=== PATIENT | male | born 1935 | race Caucasian/White ===

== ENCOUNTER → 2017-12-11 | Outpatient (CLI) | payer OTHER, BC | LOC: FIMAGING 14:20 | PROVIDERS: ATTEND Internal Medicine | DX: G31.9 Degenerative disease of nervous system, unspecified (principal) ==

== ENCOUNTER → 2017-12-18 | Outpatient (CLI) | payer OTHER, BC ==
--- NOTE | 2017-12-18 15:18 | CPEEG ---
[f rep st] ELECTROENCEPHALOGRAM DATE OF STUDY: 12/18/2017 INTERPRETATION: Normal EEG during wakefulness and sleep. There were no potentially epileptogenic ab normalities present during the recording. REPORT: This EEG contains 9 Hz alpha activity of the posterior head regions. There was no abnormal activation at rest or during photic stimulation. The patient became drowsy and fell into light sleep during the study. There was no abnormal activation during drowsiness, sleep, or during times of april usal. /[id number]/MODL
== END ==
LOC: FCPNEURO 09:29
PROVIDERS: ATTEND Internal Medicine
DX: R41.3 Other amnesia (principal)

== ENCOUNTER 2018-04-17 15:53 | Emergency (ER) | payer OTHER, BC ==
--- NOTE | 2018-04-17 16:58 | EDPHY ---
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 The patient has a history of prostate cancer status post radiation, psoriatic arthritis, hypertension, and depression. He reports a 2 week history of lower extremity edema from the knees down, 15 lb weight increase, and mild shortness of breath with exertion. He is able to lie flat. He has not had chest pain. No fever. He has no history of cardiac or lung disease. Patient tells me that he had a similar occurrence a few years back, took Lasix, and the symptoms resolved. REVIEW OF SYSTEMS: A ten system review of systems was performed and is negative with the exception of the items mentioned in the HPI. He tells me that he takes medication for Alzheimer's prevention; states that he does not have any memory problems. Past medical history: 1. Hypertension 2. Psoriatic arthritis 3. Depression 4. Hard of hearing 5. Sleep apnea 6. Prostate cancer status post radiation Social history: He lives with his . Quit smoking 40 years ago. Rare alcohol use. He is retired clinical psychologist. General Appearance: Alert. Vital signs reviewed. Blood pressure 140/61. Room air pulse ox 91% at triage. Eyes: Pupils equal and round, no conjunctival injection, no discharge. Anicteric. ENT, Mouth: Mucous membranes are moist, no oropharyngeal erythema or edema. Neck: No lymphadenopathy, supple. No JVD. Respiratory: Lungs with distant breath sounds. No wheezes, rales, or rhonchi. Cardiovascular: Regular rate and rhythm; no murmur, rub, or gallop. Gastrointestinal: Abdomen is obese, soft and nontender, easily reducible umbilical hernia, no masses or organomegaly, bowel sounds normal. Skin: Warm and dry, no rashes on exposed skin, normal color. Back: Nontender to palpation over the thoracolumbar spine. No CVAT. Extremities: Bilateral symmetric lower extremity pitting edema to the knees. Neurological: Alert and oriented. Moving all four extremities easily and equally. Psychiatric: Normal affect. - Personal History Current Tetanus Diphtheria and Acellular Pertussis (TDAP): Yes - Medical/Surgical History Hx Asthma: No Hx Chronic Respiratory Disease: No Hx Diabetes: No Hx Cardiac Disease: No Hx Renal Disease: No Hx Cirrhosis: No Hx Alcoholism: No Hx HIV/AIDS: No Hx Splenectomy or Spleen Trauma: No Other PMH: ra/htn - Social History Smoking Status: Former smoker Constitutional: Initial Vital Signs Temperature (C) 36.7 C 04/17/18 16:05 Heart Rate 77 04/17/18 16:05 Respiratory Rate 18 04/17/18 16:05 Blood Pressure 140/61 H 04/17/18 16:05 O2 Sat (%) 91 L 04/17/18 16:05 O2 Delivery Mode Room Air Allergies/Adverse Reactions: No Known Allergies Allergy (Unverified 04/17/18 16:01) Home Medications: Medication Instructions Recorded Amlodipine Besylate 04/17/18 Balasasadize 04/17/18 FOLIC ACID 04/17/18 Furosemide [Lasix] 10 mg PO Q8 #21 tablet 04/17/18 Losartan Potassium 04/17/18 Lovastatin 04/17/18 Methotrexate 04/17/18 Metoprolol Succinate 04/17/18 Sulfasalazine 04/17/18 buPROPion 04/17/18 Medical Decision Making - Diagnostics EKG Interpretation: 12 lead EKG is interpreted in [place] by emergency department physician. Sinus rhythm with rate is 73. No acute ischemic changes. No previous EKGs for comparison. ED Course/Re-evaluation: 83-year-old male with a history of hypertension who presents with asymmetric bilateral lower extremity edema, weight gain, and some mild shortness of breath that he notices with exertion. Evaluation is relatively unrevealing. Initial troponin is normal. I do not suspect an acute coronary syndrome. BNP is within normal limits. Chest x-ray shows possible mild fluid overload. Creatinine is normal. At the time of this dictation urinalysis is pending--do not know if he has protein in his urine. He does take a calcium channel rehana, amlodipine, which could cause lower extremity edema. I spoke with the on-call physician in his primary care doctor's office. His primary care physician is Dr. Strange. The office will reach out to him tomorrow morning to schedule close follow up. In the meantime, he will start on Lasix--which he has taken before under similar circumstances. I reviewed the danger signs that should prompt him to return to the emergency department for another evaluation with these including worsening shortness of breath and chest pain. Differential Diagnosis: Shortness of breath including but not limited to pulmonary infectious process, COPD, asthma, pulmonary embolus and congestive heart failure. I considered a differential diagnosis of bilateral lower extremity edema that includes but is not limited to bilateral DVTs (unlikely as is. Patient does not have active cancer and has a Well's score of -2 which puts him at low probability, nephrotic syndrome, heart failure, and effect of medication. - Data Points Laboratory Results: Laboratory Results 04/17/18 16:46 04/17/18 16:46 Medications Given: Discontinued Medications Furosemide (Lasix) 20 mg PO EDNOW ONE Stop: 04/17/18 18:53 Last Admin: 04/17/18 18:54 Dose: 20 mg Point of Care Test Results: Chemistry 04/17/18 17:10 POC Troponin I 0.01 ng/mL ng/mL (0.00-0.08) Departure - Departure Disposition: Home, Routine, Self-Care Clinical Impression: Bilateral lower extremity edema Condition: Good Instructions: Leg Edema (ED) Additional Instructions: Take the lasix 10 mg three times daily. This medication will make you urinate. It can also lower your blood pressure--so be careful when getting up and down. You should hear from Dr. Strange's office tomorrow morning--if not, please call the office yourself. You should be re-evaluated in his office (any of the practitioners is fine) tomorrow or Saturday. Referrals: Barrie Strange MD [Primary Care Provider] - As per Instructions Prescriptions: Furosemide [Lasix] 10 mg PO Q8 #21 tablet
[2018-04-17 17:25] LABS: PLATELET COUNT 232 10^3/uL (150-400)
--- NOTE | 2018-04-17 17:52 | CPEKG ---
Test Reason : OPEN Blood Pressure : / mmHG Vent. Rate : 073 BPM Atrial Rate : 073 BPM P-R Int : 246 ms QRS Dur : 119 ms QT Int : 421 ms P-R-T Axes : 041 -39 028 degrees QTc Int : 464 ms Sinus rhythm Prolonged [place] interval Nonspecific IVCD with LAD Confirmed by Starla Ca ([id number]) on 04/17/2018 5:52:06 PM Referred By: Confirmed By:Starla Ca
[2018-04-17 18:33] VITALS: BP 143/65
[2018-04-17] MEDS ORDERED: FUROSEMIDE 20 MG TAB ONE (18:51)
[2018-04-17] MEDS ORDERED: FUROSEMIDE 20 MG TAB PO ONE (18:52)
== END 2018-04-17 19:09 | disposition home or self-care (01) ==
DX: M79.89 Other specified soft tissue disorders (principal); Z85.46 Personal history of malignant neoplasm of prostate; I10 Essential (primary) hypertension; L40.50 Arthropathic psoriasis, unspecified
CPT/HCPCS: 84484-PO

== ENCOUNTER → 2018-05-14 | Outpatient (CLI) | payer OTHER, BC | LOC: BHFA 10:45 | PROVIDERS: ATTEND Internal Medicine Cardiovascular Disease | DX: R60.9 Edema, unspecified (principal); I10 Essential (primary) hypertension ==

== ENCOUNTER → 2018-06-04 | Outpatient (CLI) | payer OTHER, BC | LOC: FIMAGING 09:46 | PROVIDERS: ATTEND Internal Medicine | DX: R05 Cough (principal); R06.02 Shortness of breath; E66.9 Obesity, unspecified; C61 Malignant neoplasm of prostate; E29.1 Testicular hypofunction; R41.3 Other amnesia; M25.78 Osteophyte, vertebrae | CPT/HCPCS: 82607-90; 84402-90 ==

== ENCOUNTER → 2018-06-09 | Outpatient (CLI) | payer OTHER, BC | LOC: FIMAGING 09:39 | PROVIDERS: ATTEND Internal Medicine | DX: J44.9 Chronic obstructive pulmonary disease, unspecified (principal); I51.7 Cardiomegaly ==

== ENCOUNTER → 2018-07-01 | Outpatient (CLI) | payer OTHER, BC | LOC: FIMAGING 09:33 | PROVIDERS: ATTEND Internal Medicine | DX: J98.4 Other disorders of lung (principal) ==